=== PATIENT | male | born 1960 | race Caucasian/White ===

== ENCOUNTER 2021-09-30 14:11 | Emergency (ER) | payer SELFPAY ==
[2021-09-30 14:37] VITALS: BP 122/72; PULSE 90; RESP 18; TEMP 36.4; O2SAT 96; BMI 25.1
--- NOTE | 2021-09-30 15:24 | CM.SWNOTE ---
Addendum entered by Shakira Wilson 09/30/21 16:25: [employer] calls [facility] and speaks with intake but is on hold and is unable to get any further information they have on file about patient. [employer] provides patient and daughter with DME resources and patient is getting a [place] assessment soon from [facility] for patient's medicaid insurance services. Plan: Patient to d/c to home with PCP f/u appt to be scheduled and daughter to obtain DME as needed. ADA Go Original Note: [employer] Assessment Note [employer] enters room. Patient is 60 y/o male who presents to ED with concern for needed oxygen tank, PCP and rx. Patient presents with daughter who resides in [place]. It was reported that patient recently d/c'd from hospital in [place] with d/c plan to transfer to SNF rehab [facility] but upon arrival there was no bed for patient. Both patient and daughter endorse that patient can reside at home with daughter in [place]. Patient endorses difficulty with with some mobility and motor skills, examples of pulling up clothing and going up and down stairs due to oxygen. It is reported that patient has an oxygen concentrator at home but is in need of more oxygen. Patient endorses independence with most ADLs. It is reported that patient was at the hospital in [place] for several weeks when he stopped drinking cold turkey, was put in the Covid unit and contracted Covid leading him to need to be intubated. During the hospital stay patient had clotting and strokes and hx of AFib. Patient endorses difficulty with his left side and ability to grasp things. Daughter endorses that patient thought it was the year 2003 or 2007 a few weeks ago. When asked today, patient can identify the month and the president, patient presents as somewhat A/Ox4. Patient endorses that he drinks 1 beer a day and uses a nicotene patch. It is also reported that patient needs to f/u with a vp informatics. [employer] calls [facility] to schedule a PCP establishment appt, Gillian with A nurse receptionist states she will call patient back at his phone number if there is an opening. [employer] states that [employer] will secure patient's daughter's phone number as well. [employer] would like to set up HH for RN, PT, OT and [employer] but patient needs to be established with PCP prior to HH referral. [employer] calls [facility] SNF rehab and there is no answer from the admissions desk and there is no VM box to leave VM. Patient states he is safe and comfortable at daughter's home and daughter endorses that he can stay as long as he wants. [employer] reviews this with ED provider Eric Swain PA-C who indicates understanding. ED provider is to medically assess patient for further POC. It is the opinion of this [employer] that patient is safe to d/c to home with PCP and vp informatics f/u and PCP to refer HH for patient. ADA Go
--- NOTE | 2021-09-30 16:23 | ED.RECABL ---
HPI - Recheck/Abnormal Lab/Rx <Eric Swain PA-C - Last Filed: 09/30/21 20:52> General Chief Complaint: Recheck/Abnormal Lab/Rx Stated Complaint: Needs oxygen Time Seen by Provider: 09/30/21 15:03 Source: patient and family Mode of arrival: Ambulatory History of Present Illness HPI narrative: 60-year-old male with past medical history alcohol dependence, hyperlipidemia, AFib, stroke presents to the ED for placement into a retirement facility for rehab, physical therapy, occupational therapy. Patient was hospitalized in [place] 2 months ago for alcohol withdrawal when he tried to go cold turkey, contracted COVID 19 while he was there, was intubated, had strokes due to multiple blood clots. Patient still has residual right-sided weakness from his strokes. Patient is also on supplemental oxygen which he uses for activities and exertion. Patient at rest saturates in the low 90s on room air. He desats to 80% on room air with activity, for which he uses home oxygen via a oxygen concentrator. Patient was slated to go to a sinus in [facility], however that fell through. He is brought in by his daughter today for placement or referral to a PCP that can prescribe a home health aide. Patient also has several medications that he needs refills on. Patient currently does not have a PCP. Patient does not complain of any acute symptoms including fevers, chills, chest pain, cough, nausea, vomiting, abdominal pain, dysuria, flank pain, lightheadedness, dizziness, syncope. Related Data Previous Rx's Medication Instructions Recorded apixaban 5 mg (74 tabs) tablets in 5 mg PO BID 30 Days #60 ea 09/30/21 a dose pack (Eliquis DVT-PE Treat 30D Start) aspirin 81 mg chewable tablet 81 mg PO DAILY 30 Days tab 09/30/21 cholecalciferol (vitamin D3) 25 25 mcg PO DAILY #14 cap 09/30/21 mcg (1,000 unit) capsule metoprolol tartrate 25 mg tablet 12.5 mg PO BID 14 Days #14 tab 09/30/21 nicotine 14 mg/24 hr daily 1 patch TRANSDERMAL DAILY 14 Days 09/30/21 transdermal patch (Nicoderm CQ) ea vitamin B comp and C no.3 15 mg-10 1 cap PO DAILY 14 Days cap 11/22/21 mg-50 mg-5 mg-300 mg capsule Allergies Allergy/AdvReac Type Severity Reaction Status Date / Time No Known Drug Allergies Allergy Verified 09/30/21 14:41 Review of Systems <Eric Swain PA-C - Last Filed: 09/30/21 20:52> Review of Systems ROS Unobtainable: All systems reviewed & are unremarkable except as noted in HPI and below Constitutional Constitutional: Denies chills, Denies fatigue, Denies fever(s), Denies frequent falls, Denies lethargy and Denies weakness Eyes Eyes: Denies change in vision, Denies eye discharge, Denies irritation and Denies loss of vision ENT Ears, Nose, Mouth, and Throat: Denies change in voice, Denies dizziness, Denies neck pain, Denies sore throat and Denies throat swelling Cardiovascular Cardiovascular: Denies chest pain, Denies irregular heart rhythm, Denies lightheadedness, Denies palpitations, Denies dyspnea, Reports dyspnea on exertion and Denies orthopnea Respiratory Respiratory: Denies cough, Denies dyspnea, Reports dyspnea on exertion and Denies wheezing Gastrointestinal Gastrointestinal: Denies abdominal pain, Denies change in bowel habits, Denies diarrhea, Denies nausea and Denies vomiting Genitourinary Genitourinary: Denies hematuria, Denies flank pain, Denies urinary incontinence and Denies urinary urgency Musculoskeletal Musculoskeletal: Denies back pain, Denies muscle weakness, Denies neck pain, Denies numbness and Denies tingling Integumentary/Breasts Skin/Breast: Denies pruritus, Denies erythema, Denies rash and Denies wounds Neurologic Neurologic: Denies behavioral changes, Denies confusion, Denies dizziness, Denies frequent falls, Denies loss of vision, Denies numbness, Denies tingling and Denies weakness Psychiatric Psychiatric: Denies anxiety, Denies behavioral changes, Denies confusion, Denies depression, Denies homicidal ideation and Denies suicidal ideation Endocrine Endocrine: Denies fatigue, Denies flushing and Denies palpitations Hematologic/Lymphatic Hematologic/Lymphatic: Denies easy bruising Allergic/Immunologic Allergic/Immunologic: Denies urticaria, Denies throat swelling and Denies wheezing Patient History <Eric Swain PA-C - Last Filed: 09/30/21 20:52> Social History Smoking Status: Former smoker Smoking Status: Former smoker Substance Use Type: former substance user and marijuana Exam <Eric Swain PA-C - Last Filed: 09/30/21 20:52> Initial Vital Signs Initial Vital Signs: Vital Signs Temperature 97.6 F 09/30/21 14:37 Pulse Rate 90 09/30/21 14:37 Respiratory Rate 18 09/30/21 14:37 Blood Pressure 122/72 09/30/21 14:37 Pulse Oximetry 96 09/30/21 14:37 Const General: cooperative HENMT Head: normal to inspection Eyes General: appearance normal, both eyes and all related structures Neck Neck: normal visual inspection Chest Chest: normal inspection of the chest Resp Effort & Inspection: normal respiratory effort Auscultation: clear to auscultation bilaterally Cardio Rate: regular rate Rhythm: regular rhythm GI Inspection: normal to inspection Other: Abdomen is soft, nondistended, nontender to palpation. General: No CVA tenderness Skin General: no rashes or lesions noted Neuro General: patient alert, patient awake and patient oriented x3 Other: Residual baseline right-sided weakness from prior stroke. <DO Terell Payton Last Filed: 10/01/21 07:10> Initial Vital Signs Initial Vital Signs: Vital Signs Temperature 97.6 F 09/30/21 14:37 Pulse Rate 90 09/30/21 14:37 Respiratory Rate 18 09/30/21 14:37 Blood Pressure 122/72 09/30/21 14:37 Pulse Oximetry 96 09/30/21 14:37 Course <Eric Swain PA-C - Last Filed: 09/30/21 20:52> Course Course Narrative: Social work has provided resources for PCPs, DME to the patient. Refilled prescriptions. Patient and daughter verbalized understanding. ED return precautions discussed. Discharged home. Orders Ordered: ED Orders 09/30/21 14:42 [place] [facility] [place] Intercept Technician Stat Vital Signs Vital signs: Vital Signs - 8 hr 09/30/21 14:37 Temperature 97.6 F Pulse Rate 90 Respiratory Rate 18 Blood Pressure 122/72 Pulse Oximetry 96 <DO Terell Payton Last Filed: 10/01/21 07:10> Orders Ordered: ED Orders 09/30/21 14:42 [place] [facility] [place] Intercept Technician Stat Vital Signs Vital signs: Vital Signs - 8 hr 09/30/21 14:37 Temperature 97.6 F Pulse Rate 90 Respiratory Rate 18 Blood Pressure 122/72 Pulse Oximetry 96 MDM - Recheck/Abnormal Lab/Rx <Eric Swain PA-C - Last Filed: 09/30/21 20:52> [facility] Narrative Medical decision making narrative: 60-year-old male with past medical history alcohol dependence, hyperlipidemia, AFib, stroke presents to the ED for placement into a retirement facility for rehab, physical therapy, occupational therapy. Will consult social Work for sniff placement versus PCP referral for home health aide, DME resources for an oxygen tank. Given reassuring physical exam, no acute complaints, no indications for diagnostics or interventions in the ED today. Will refill prescriptions. Discharge Plan Departure Patient Disposition: Home Clinical Impression: Encounter for rehabilitation Instructions: Home Oxygen Therapy, How to Measure Oxygen Saturation via Pulse Oximetry Activity Restrictions/Additional Instructions: You were seen in the ED today for needing post COVID rehabilitation, physical therapy, occupational therapy. Social work was consulted, they have provided your resources to obtain a PCP who can refer you for home health aide, physical therapy, occupational therapy. You have also been provided refills of you medications until you see your PCP. Return to the ED if you have worsening shortness of breath, chest pain, fever, chills. Prescriptions: New Eliquis DVT-PE Treat 30D Start 5 mg (74 tabs) tablets,dose pack 5 mg PO BID 30 Days Qty: 60 0RF aspirin 81 mg tablet,chewable 81 mg PO DAILY 30 Days 0RF cholecalciferol (vitamin D3) 25 mcg (1,000 unit) capsule 25 mcg PO DAILY Qty: 14 0RF metoprolol tartrate 25 mg tablet 12.5 mg PO BID 14 Days Qty: 14 0RF vitamin B comp and C no.3 [id number] mg capsule 1 cap PO DAILY 14 Days 0RF Rx Instructions: give with food (meal/snack) nicotine [Nicoderm CQ] 14 mg/24 hr patch 24 hour 1 patch transdermal DAILY 14 Days 0RF <Daren Randall DO - Last Filed: 10/01/21 07:10> Cosign ED Attending Cosignature Attestation: Dr Randall Co-Sign Statement: I was available for consultation during this patient's emergency department visit. This chart is signed by myself for administrative purposes only. I did not have direct contact with this patient during this visit. They were seen independently by the APC.
== END 2021-09-30 17:16 | disposition home or self-care (01) ==
PROVIDERS: Emergency Provider Student in an Organized Health Care Education/Training Program
DX: Z02.2 Encounter for examination for admission to residential institution (principal); Z76.0 Encounter for issue of repeat prescription
CPT/HCPCS: 99281

== ENCOUNTER 2021-10-30 17:33 | Emergency (ER) | payer SELFPAY ==
[2021-10-30 17:40] VITALS: BP 139/79; PULSE 94; RESP 22; TEMP 36.8; O2SAT 97
--- NOTE | 2021-10-30 18:07 | PC.NURSE ---
Pt recently moved from [place] with extensive medical hx. Pt was hospitalized x 60+ days with COVID PNA, ETOH detox, developed DVT and had subsequent strokes while intubated. Currently on Eliquis. Presents with increased RLL swelling and SOB. HR 88 NSR and 148/85. Concerned that he has a PE or worsening DVT.
--- NOTE | 2021-10-30 18:17 | ED_ITS ---
HPI - Extremity Injury (Lower) General Chief Complaint: Extremity Injury, Lower Stated Complaint: Left lower leg swelling/blood clot x2 weeks Time Seen by Provider: 10/30/21 18:06 Source: patient Mode of arrival: Ambulatory History of Present Illness HPI Narrative: Patient is a 61-year-old male. Recently was discharged after having an extended stay in a hospital in [place] where he was initially admitted for alcohol detox and then subsequently developed COVID and per the family and patient's report was intubated for approximately 1 month. He did have a trach. Also had a feeding tube. Recovered from these issues. Just prior to discharge was diagnosed with a right lower extremity DVT. Is currently on Eliquis. He is new to the area here. Has a follow-up already scheduled with a primary doctor on the 11 of November. Arrives the emergency department today because he has had worsening right lower extremity swelling. This is the leg where he was diagnosed with a DVT. He denies any chest pain or shortness of breath. Does have compression stockings but does not have them on currently. No fevers. He is taking his Eliquis as directed. Related Data Previous Rx's Medication Instructions Recorded apixaban 5 mg (74 tabs) tablets in 5 mg PO BID 30 Days #60 ea 10/15/21 a dose pack (Eliquis DVT-PE Treat 30D Start) cholecalciferol (vitamin D3) 25 25 mcg PO DAILY #90 cap 10/15/21 mcg (1,000 unit) capsule metoprolol tartrate 25 mg tablet 12.5 mg PO BID #45 tab 10/15/21 vitamin B comp and C no.3 15 mg-10 1 cap PO DAILY #90 cap 10/15/21 mg-50 mg-5 mg-300 mg capsule (B Complex Plus Vitamin C) furosemide 20 mg tablet (Lasix) 20 mg PO QAM #14 tab 10/30/21 Allergies Allergy/AdvReac Type Severity Reaction Status Date / Time No Known Drug Allergies Allergy Verified 09/30/21 14:41 Review of Systems Cardiovascular Cardiovascular: Reports system reviewed and no additional complaints, except as documented Respiratory Respiratory: Reports system reviewed and no additional complaints, except as documented Musculoskeletal Musculoskeletal: Reports system reviewed and no additional complaints, except as documented Integumentary/Breasts Skin/Breast: Reports system reviewed and no additional complaints, except as documented Neurologic Neurologic: Reports system reviewed and no additional complaints, except as documented Hematologic/Lymphatic On Anticoagulants: Yes Patient History Medical History Alcohol abuse DVT (deep venous thrombosis) Social History Smoking Status: Current every day smoker Smoking Status: Current every day smoker alcohol intake frequency: 0-2 drinks per day Substance Use Type: former substance user and marijuana Exam Initial Vital Signs Initial Vital Signs: Vital Signs Temperature 98.3 F 10/30/21 17:40 Pulse Rate 94 H 10/30/21 17:40 Respiratory Rate 22 10/30/21 17:40 Blood Pressure 139/79 10/30/21 17:40 Pulse Oximetry 97 10/30/21 17:40 Const General: cooperative and comfortable HENMT Head: normal to inspection and normocephalic Resp Effort & Inspection: normal respiratory effort Auscultation: clear to auscultation bilaterally Cardio Rate: regular rate Rhythm: regular rhythm Pulses: dorsalis pedis present on the right Skin General: no rashes or lesions noted Neuro General: patient alert and patient awake Sensory Exam: no sensory deficits noted Extrem Other: Patient does have circumferential swelling located mostly below the knee in the right lower extremity however to out lesser extent above the knee. Course Orders Ordered: ED Orders 10/30/21 16:00 NT-proBNP (BNP-Adult 18+) Stat Troponin & CK Cardiac Panel Stat 10/30/21 17:58 EKG-12 Lead Stat 10/30/21 18:00 Complete Blood Count AUTO DIFF Stat Comprehensive Metabolic Panel Stat Lactate (Lactic Acid) Stat Prothrombin Time INR Stat Vital Signs Vital signs: Vital Signs - 8 hr 10/30/21 17:40 10/30/21 19:20 Temperature 98.3 F Pulse Rate 94 H 87 Respiratory Rate 22 22 Blood Pressure 139/79 126/75 Pulse Oximetry 97 97 MDM - Extremity Injury (Lower) Lab Data Attestation: I reviewed the patient's lab results. Result diagrams: 10/30/21 18:00 10/30/21 18:00 Labs: Lab Results 10/30/21 10/30/21 10/30/21 Range/Units 16:00 18:00 18:00 WBC 8.2 (4.5-11.0) X10^3/uL RBC 4.79 (4.5-5.9) X10^6/uL Hgb 15.0 (13.5-17.5) g/dL Hct 44.5 (41-53) % MCV 92.8 (80-100) fL MCH 31.3 (26-34) PG MCHC 33.7 (30-36) % RDW 15.3 H (11.6-14.8) % Plt Count 238 (150-400) X10^3/uL Neut % (Auto) 50.0 (50-75) % Lymph % (Auto) 31.9 (25-40) % [place] % (Auto) 11.5 (3-14) % Eos % (Auto) 6.4 H (2-4) % Baso % (Auto) 0.2 (0-2) % Neut # (Auto) 4100 (4521-6157) /uL Lymph # (Auto) 2600 (7068-1401) /uL [place] # (Auto) 900 (0-900) /uL Eos # (Auto) 500 H (0-450) /uL Baso # (Auto) 0 (0-100) /uL PT 12.1 (10.1-12.7) SECONDS INR 1.1 (0.9-1.3) Sodium (137-145) mmol/L Potassium (3.4-5.1) mmol/L Chloride (98-107) mmol/L Carbon Dioxide (22-32) mmol/L BUN (9-20) mg/dL Creatinine (0.66-1.25) mg/dL Estimated GFR (>60) mL/min BUN/Creatinine Ratio (6-22) Glucose (70-100) mg/dL Lactate (0.7-2.1) mmol/L Calcium (8.4-10.2) mg/dL Total Bilirubin (0.2-1.3) mg/dL AST (17-59) IU/L ALT (<50) IU/L Alkaline Phosphatase (38-126) U/L Total Creatine Kinase 33 L (55-170) U/L CK-MB (CK-2) TNP CK-MB (CK-2) Rel Index TNP Troponin I < 0.012 (0.01-0.034) ng/mL NT-Pro-B Natriuret Pep 254 H (<125) pg/mL Total Protein (6.3-8.2) g/dL Albumin (3.5-5.0) g/dL Globulin (1.7-4.1) g/dL Albumin/Globulin Ratio (1.0-2.8) 10/30/21 10/30/21 Range/Units 18:00 18:00 WBC (4.5-11.0) X10^3/uL RBC (4.5-5.9) X10^6/uL Hgb (13.5-17.5) g/dL Hct (41-53) % MCV (80-100) fL MCH (26-34) PG MCHC (30-36) % RDW (11.6-14.8) % Plt Count (150-400) X10^3/uL Neut % (Auto) (50-75) % Lymph % (Auto) (25-40) % [place] % (Auto) (3-14) % Eos % (Auto) (2-4) % Baso % (Auto) (0-2) % Neut # (Auto) (9373-9803) /uL Lymph # (Auto) (2820-4639) /uL [place] # (Auto) (0-900) /uL Eos # (Auto) (0-450) /uL Baso # (Auto) (0-100) /uL PT (10.1-12.7) SECONDS INR (0.9-1.3) Sodium 136 L (137-145) mmol/L Potassium 4.1 (3.4-5.1) mmol/L Chloride 104 (98-107) mmol/L Carbon Dioxide 29 (22-32) mmol/L BUN 5 L (9-20) mg/dL Creatinine 0.61 L (0.66-1.25) mg/dL Estimated GFR > 60.0 (>60) mL/min BUN/Creatinine Ratio 8.2 (6-22) Glucose 90 (70-100) mg/dL Lactate 2.1 (0.7-2.1) mmol/L Calcium 9.4 (8.4-10.2) mg/dL Total Bilirubin 0.5 (0.2-1.3) mg/dL AST 46 (17-59) IU/L ALT 17 (<50) IU/L Alkaline Phosphatase 102 (38-126) U/L Total Creatine Kinase (55-170) U/L CK-MB (CK-2) CK-MB (CK-2) Rel Index Troponin I (0.01-0.034) ng/mL NT-Pro-B Natriuret Pep (<125) pg/mL Total Protein 7.4 (6.3-8.2) g/dL Albumin 3.8 (3.5-5.0) g/dL Globulin 3.6 (1.7-4.1) g/dL Albumin/Globulin Ratio 1.1 (1.0-2.8) MDM Narrative Medical decision making narrative: Patient has a known DVT in his right lower extremity. He denies chest pain or shortness of breath. This swelling in his lower extremity is not consistent with trauma nor cellulitis. No indication for antibiotics. I suspect that the swelling is related to the DVT. I did discuss this with him. We did discuss th e use of elevation and compression stockings. Will try a short course of Lasix to see if this does not improve his symptoms but I did discuss with him that this may not be all that successful. Informed him that he does need to keep his scheduled follow-up appointment with his new primary doctor. He was given return precautions and follow-up instructions. He expressed understanding and agreement. Discharge Plan Departure Patient Disposition: Home Clinical Impression: Edema Instructions: Edema (Alternative Therapy), Edema Activity Restrictions/Additional Instructions: I do recommend you continue to take all of your medications as directed. Keep your scheduled medical appointment at the beginning of next month. Keep your right leg elevated and use the compression stockings or Dinesh bandage like we discussed. Return to the emergency department for any new or worsening symptoms. Prescriptions: New furosemide [Lasix] 20 mg tablet 20 mg PO QAM Qty: 14 0RF No Action metoprolol tartrate 25 mg tablet 12.5 mg PO BID Qty: 45 1RF Eliquis DVT-PE Treat 30D Start 5 mg (74 tabs) tablets,dose pack 5 mg PO BID 30 Days Qty: 60 5RF cholecalciferol (vitamin D3) 25 mcg (1,000 unit) capsule 25 mcg PO DAILY Qty: 90 3RF B Complex Plus Vitamin C 43-60-52-5-300 mg capsule 1 cap PO DAILY Qty: 90 3RF Rx Instructions: give with food (meal/snack) Referrals: James Akbar MD [Primary Care Provider] -
[2021-10-30 18:18] LABS: INR 1.1 (0.9-1.3); Prothrombin Time 12.1 SECONDS (10.1-12.7)
[2021-10-30 18:26] LABS: Add Manual Diff / Slide Review NO; Basophils Absolute Auto 0 /uL (0-100); Basophils Percent Auto 0.2 % (0-2); Eosinophils Absolute Auto 500 /uL (0-450); Eosinophils Percent Auto 6.4 % (2-4); Hematocrit 44.5 % (41-53); Lymphocytes Absolute Auto 2600 /uL (1100-4500); Lymphocytes Percent Auto 31.9 % (25-40); Mean Corpuscular HGB Conc 33.7 % (30-36); Mean Corpuscular Hemoglobin 31.3 PG (26-34); Mean Corpuscular Volume 92.8 fL (80-100); Monocytes Absolute Auto 900 /uL (0-900); Monocytes Percent Auto 11.5 % (3-14); Neutrophils Absolute Auto 4100 /uL (1500-7000); Platelet Count 238 X10^3/uL (150-400); Red Blood Cell Count 4.79 X10^6/uL (4.5-5.9); Red Cell Distribution Width 15.3 % (11.6-14.8); White Blood Cell Count 8.2 X10^3/uL (4.5-11.0)
[2021-10-30 18:33] LABS: Lactate (Lactic Acid) 2.1 mmol/L (0.7-2.1)
[2021-10-30 18:33] LABS: Creatine Kinase 33 U/L (55-170)
[2021-10-30 18:34] LABS: Alanine Aminotransferase 17 IU/L (<50); Albumin 3.8 g/dL (3.5-5.0); Albumin Globulin Ratio 1.1 (1.0-2.8); Alkaline Phosphatase 102 U/L (38-126); Aspartate Aminotransferase 46 IU/L (17-59); BUN Creatinine Ratio 8.2 (6-22); Bilirubin Total 0.5 mg/dL (0.2-1.3); Blood Urea Nitrogen 5 mg/dL (9-20); Calcium 9.4 mg/dL (8.4-10.2); Carbon Dioxide 29 mmol/L (22-32); Chloride 104 mmol/L (98-107); Estimated Glomerular Filt Rate > 60.0 mL/min (>60); Globulin 3.6 g/dL (1.7-4.1); Glucose 90 mg/dL (70-100); HEMOLYSIS 16 (0-50); Potassium 4.1 mmol/L (3.4-5.1); Sodium 136 mmol/L (137-145); Total Protein 7.4 g/dL (6.3-8.2)
[2021-10-30 18:45] LABS: NT-proBNP (BNP-Adult 18+) 254 pg/mL (<125); Troponin I < 0.012 ng/mL (0.01-0.034)
[2021-10-30 19:20] VITALS: BP 126/75; PULSE 87; RESP 22; O2SAT 97
[2021-10-30 20:12] LABS: Reflexed Lactate in 2 Hours Y
== END 2021-10-30 19:20 | disposition home or self-care (01) ==
PROVIDERS: Emergency Provider Emergency Medicine; PCP Internal Medicine
DX: R60.0 Localized edema (principal)
CPT/HCPCS: 36415; 80053; 82550; 83605; 83880; 84484; 85025; 85610; 93005; 99283

== ENCOUNTER → 2021-11-11 14:52 | Outpatient (CLI) | payer OTHER, MEDICAID, SELFPAY ==
[2021-11-11 15:40] LABS: BUN Creatinine Ratio 11.7 (6-22); Blood Urea Nitrogen 7 mg/dL (9-20); Calcium 10.2 mg/dL (8.4-10.2); Carbon Dioxide 30 mmol/L (22-32); Chloride 102 mmol/L (98-107); Cholesterol 225 mg/dL (140-199); Estimated Glomerular Filt Rate > 60.0 mL/min (>60); Glucose 88 mg/dL (70-100); HDL Cholesterol 33 mg/dL (40-60); HEMOLYSIS < 15 (0-50); LDL Cholesterol Calculated 122 mg/dL (<100); Potassium 4.5 mmol/L (3.4-5.1); Sodium 137 mmol/L (137-145); Triglycerides 351 mg/dL (35-150)
[2021-11-11 15:48] LABS: Hemoglobin A1C% w Est Avg Glu 5.3 % (4.0-6.0)
[2021-11-11 15:50] LABS: LDL Cholesterol Direct 152 mg/dL (<100)
== END ==
PROVIDERS: PCP Internal Medicine; Referring Provider Internal Medicine; Visit Provider Internal Medicine
DX: E78.5 Hyperlipidemia, unspecified (principal); I10 Essential (primary) hypertension; R73.9 Hyperglycemia, unspecified
CPT/HCPCS: 36415; 80048; 80061; 83036; 83721